=== PATIENT | female | born 2000 | race Hispanic/Latino ===

== ENCOUNTER 2020-03-21 16:40 | Emergency (ER) | payer OTHER | END 2020-03-21 18:28 | disposition home or self-care (01) | LOC: EDH 16:40 | DX: S63.697A Other sprain of left little finger, initial encounter (principal); V49.49XA Driver injured in collision with other motor vehicles in traffic accident, initial encounter; Y93.89 Activity, other specified; Y92.488 Other paved roadways as the place of occurrence of the external cause; Y99.8 Other external cause status | CPT/HCPCS: 73130 ==